=== PATIENT | male | born 1990 | race African-American/Black ===

== ENCOUNTER 2020-06-16 16:30 | Emergency (ER) | payer OTHER ==
[~2020-06-16] VITALS: Ht 177.8 cm; Wt 78.5 kg
[2020-06-16] MEDS ORDERED: LIDOCAINE 1% W/EPINEPHRINE 20 ML VIAL ONE (16:53)
[2020-06-16] MEDS ORDERED: TETANUS/DIPHTHERIA TOX ADULT 0.5 ML SYR ONE (16:54)
[2020-06-16] MEDS ORDERED: TETANUS/DIPHTHERIA TOX ADULT 0.5 ML SYR IM ONE (17:00)
--- NOTE | 2020-06-16 18:06 | NUR ---
contacted joss house keeper Rylee for approval for transfer of pt to trauma center for facial lacerations/trauma
--- NOTE | 2020-06-16 18:07 | Diagnostic Imaging Report ---
Examination: CT head without contrast Clinical Indication: ^facial trauma Technique: Transaxial noncontrast images from the skull base through the vertex were obtained. Sagittal and coronal reformatted images were done. Dose modulation, iterative reconstruction, and/or weight based adjustment of the mA/kV was utilized to reduce the radiation dose to as low as reasonably achievable. Comparison: None. Findings: Scalp: No abnormalities. Bones: Intact. No fractures. No blastic or lytic lesions. Brain sulci: Appropriate for patient's age. Ventricles: Normal in size and configuration. No hydrocephalus. Extra-axial space: No abnormalities. Parenchyma: No abnormal densities. No masses, hemorrhage, or acute or chronic cortical based vascular insults. Suprasellar region: No abnormalities. Craniocervical junction: The foramen magnum is patent. No Chiari one malformation. Impression: No intracranial abnormality. Signed by: Dr. Divine Hernadez M.D. on 06/16/2020 6:04 PM
--- NOTE | 2020-06-16 18:10 | NUR ---
Contacted [facility] for transfer
--- NOTE | 2020-06-16 18:14 | Diagnostic Imaging Report ---
Examination: CT Face without Contrast History:^facial trauma Comparison studies: None Technique: Axial images were obtained through the maxillofacial region. Coronal and sagittal reconstructions obtained from the axial data. Dose modulation, iterative reconstruction, and/or weight based adjustment of the mA/kV was utilized to reduce the radiation dose to as low as reasonably achievable. Intravenous contrast: None Findings: Soft tissues: Right periorbital soft tissue hematoma and laceration. Bones: No acute fractures. Midline frontal calvarium 0.9 x 1.8cm (greatest axial dimension) fibro-osseous lesion. Orbits: Globes: Intact Extra or intraconal abnormalities: None. Paranasal sinuses: Clear. IMPRESSION: Right periorbital soft tissue hematoma and laceration without acute facial fracture. Signed by: Dr. Divine Hernadez M.D. on 06/16/2020 6:11 PM
--- NOTE | 2020-06-16 18:29 | NUR ---
Approval by Kerwin Chinchilla RN and acceptance by Dr. Brandi Birmingham to [facility] ER.
[2020-06-16] MEDS ORDERED: TRAMADOL HCL 50 MG TAB PO ONE (18:45)
--- NOTE | 2020-06-16 18:46 | Emergency Department Note ---
History of Present Illnes History of Present Illness Chief Complaint: Laceration History of Present Illness This is a 30 year old male who presents with facial trauma s/p car fell off [place] and landed on him while he was changing the oil. Denies LOC, numbness, tingling, weakness. Denies any other injuries. No cough, sore throat, runny nose, congestion, loss of smell/taste. No sick contacts. No neck pain. Historian: Patient Arrival Mode: Car Additional Treatment CARD DEALER: tramadol 1500 50mg Project Management Manager Required: No Onset (how long ago): hour(s) (1) Location: right side of face Quality: sharp Radiation: Reports non-radiation Severity: mild Onset quality: sudden Duration (how long): hour(s) (1) Progression: unchanged Chronicity: new Context: Reports trauma/injury; Denies recent illness Relieving factors: none Exacerbating factors: none Associated symptoms: Reports headaches; Denies confusion, Denies chest pain, Denies cough, Denies diaphoresis, Denies fever/chills, Denies loss of appetite, Denies nausea/vomiting, Denies shortness of breath, Denies syncope, Denies weakness Past Medical/Family History Physician Review I have reviewed the patient's past medical and family history. Any updates have been documented here. Past Medical History Recent Fever: No Clinical Suspicion of Infectio: No New/Unexplained Change in Ment: No Past Medical History: Asthma Past Surgical History: None Social History Smoking Cessation: Never Smoker Counseling Performed: No Alcohol Use: Occasional Any Illegal Drug Use: No Physically hurt or threatened: No Other Any Pre-Existing Lines (PICC,: No Review of Systems Review of Systems Constitutional: Denies chills, Denies fever EENTM: Denies blurred vision, Denies tearing, Denies double vision, Denies ear discharge, Denies throat pain Cardiovascular: Denies chest pain, Denies syncope Respiratory: Denies cough, Denies dyspnea Gastrointestinal: Denies abdominal pain Genitourinary: Denies pain Musculoskeletal: Denies back pain, Denies joint pain, Denies muscle pain Integumentary: Reports as per HPI; Denies rash Neurological: Reports headache; Denies numbness, Denies paresthesia, Denies pre-existing deficit, Denies seizure, Denies tingling, Denies tremors, Denies weakness Psychological: Reports anxiety Hematological/Lymphatic: Denies easy bleeding Physical Exam Related Data Allergies: Coded Allergies: raw vegetable (Verified Allergy, Severe, ANAPHYLAXIS, 06/16/20) CAN HAVE VEGETABLES IF THEY ARE COOKED BUT NO RAW VEGETABLES Triage Vital Signs Vital Signs Date Time Temp Pulse Resp B/P (MAP) Pulse Ox O2 Delivery O2 Flow Rate FiO2 06/16/20 16:35 99.9 62 16 153/80 100 Room Air Physical Exam CONSTITUTIONAL Constitutional: Present well-developed, Present well-nourished HENT Left face with multiple linear abrasions over right zygomatic arch. 1 cm laceration over lower right lateral eyebrow extending into upper eyelid. 2 cm laceration through mid left eyebrow extending into upper eyelid with flap. HENT: Present normocephalic, Present oropharynx clear/moist, Present nose normal; Absent atraumatic HENT L/R: Present left ext ear normal, Present right ext ear normal EYES Eyes: Reports PERRL, Reports conjunctivae normal NECK Neck: Present ROM normal, Present other (non-tender with FROM) PULMONARY Pulmonary: Present effort normal, Present breath sounds normal CARDIOVASCULAR Cardiovascular: Present regular rhythm, Present heart sounds normal, Present capillary refill normal, Present normal rate GASTROINTESTINAL Abdominal: Present soft, Present nontender, Present bowel sounds normal GENITOURINARY Genitourinary: Present exam deferred SKIN Skin: Present warm, Present dry MUSCULOSKELETAL Musculoskeletal: Present ROM normal NEUROLOGICAL Neurological: Present alert, Present oriented x 3, Present no gross motor or sensory deficits PSYCHOLOGICAL Psychological: Present mood/affect normal, Present judgement normal Assessment & Plan Medical Decision Making MDM Irrigated facial wounds with 500cc NS and prepped with betadine. injected 1cc lidocaine 1% with epi for exam. Examined to base of wound in bloodless field. Palpated wound and inferior aspect of mid eyebrow laceration with just a few mm of globe. Spoke with Dr. Brandi Birmingham who accepted patient at [facility] due to proximity of globe. Assessment & Plan Final Impression: (1) Laceration (2) Facial trauma (3) Laceration, eyelid, right Depart Disposition: [facility] Last Vital Signs Date Time Temp Pulse Resp B/P (MAP) Pulse Ox O2 Delivery O2 Flow Rate FiO2 06/16/20 16:35 99.9 62 16 153/80 100 Room Air Medications in the ED Lidocaine/ Epinephrine 20 ml STK-MED ONCE .ROUTE ; Start 06/16/20 at 16:53; Stop 06/16/20 at 16:48; Status DC Tetanus/ Diphtheria Toxoids 0.5 ml STK-MED ONCE .ROUTE ; Start 06/16/20 at 16:54; Stop 06/16/20 at 16:48; Status DC Tetanus/ Diphtheria Toxoids 0.5 ml ONCE ONCE IM Last administered on 06/16/20at 17:00; Admin Dose 0.5 ML; Start 06/16/20 at 17:00; Stop 06/16/20 at 17:22; Status DC LINDY BOTELLO MD Jun 16, 2020 18:19
--- NOTE | 2020-06-16 18:55 | NUR ---
Faxed MOT and facesheet to warehouse representative and [facility]
[2020-06-16 18:57] VITALS: BP 140/80
--- NOTE | 2020-06-16 19:15 | NUR ---
Report called and given to ENTERTAINMENT DANCER at [facility] ER.
== END 2020-06-16 19:10 | disposition short-term general hospital (02) ==
LOC: FSED 16:55
DX: S01.111A Laceration without foreign body of right eyelid and periocular area, initial encounter (principal); W20.8XXA Other cause of strike by thrown, projected or falling object, initial encounter; J45.909 Unspecified asthma, uncomplicated
CPT/HCPCS: 70450; 70486; 90471; 90714; 96372; 99284